=== PATIENT | female | born 1955 | race Caucasian/White ===

== ENCOUNTER 2016-12-29 06:30 | Observation (INO) | payer OTHER ==
[2016-12-29] VITALS (8 sets, daily range): BP systolic 126–184; BP diastolic 58–73
[~2016-12-29] VITALS: Ht 154.9 cm; Wt 95.3 kg
[~2016-12-29 06:30] MED LIST: CEFAZOLIN 2GM PREMIX 50 ML IV ONE
[2016-12-29] MEDS ORDERED: BACITRACIN 50,000 UNIT in IV NORMAL SALINE 250ML 250 ML IRR ONE (07:15)
[2016-12-29 08:02] LABS: HEMATOCRIT 40.7 % (36.0-47.0); HEMOGLOBIN 13.8 g/dL (12.0-15.5); RED BLOOD COUNT 4.19 x10^6/uL (3.50-5.40); RED CELL DISTRIBUTION WIDTH 15.2 % (11.5-14.5); WHITE BLOOD COUNT 8.9 x10^3/uL (4.0-11.0)
[2016-12-29] MEDS ORDERED: CEFAZOLIN 2GM PREMIX 50 ML IV ONE ×2 (08:03→11:00)
[2016-12-29] MEDS ORDERED: LIDOCAINE 2%/EPI 1:100,000 20 ML VIAL. ONE ×3 (08:04→08:38)
[2016-12-29 08:06] LABS: CALCIUM 8.8 mg/dL (8.5-10.1); CREATININE 0.6 mg/dL (0.6-1.0); GFR 101.3; POTASSIUM 3.9 mmol/L (3.5-5.1)
[2016-12-29] MEDS ORDERED: MIDAZOLAM HCL/PF 5 MG/5 ML VIAL ONE (08:18)
[2016-12-29] MEDS ORDERED: FENTANYL PF 250 MCG/5 ML VIAL. ONE (08:18)
[2016-12-29 08:25] LABS: PROTHROMBIN TIME PATIENT 12.6 SEC (11.7-14.0)
[2016-12-29] MEDS ORDERED: PHEN32.42 PO (08:41)
[2016-12-29] MEDS ORDERED: METO50TA2 PO (08:41)
[2016-12-29] MEDS ORDERED: NABU500T PO (08:41)
[2016-12-29] MEDS ORDERED: ARIP10TA13 PO (08:41)
[2016-12-29] MEDS ORDERED: LOSA50TA6 PO (08:41)
[2016-12-29] MEDS ORDERED: ASCO500T2 PO (08:41)
[2016-12-29] MEDS ORDERED: CHOL10003 PO (08:41)
[2016-12-29] MEDS ORDERED: MONT10TA9 PO (08:41)
[2016-12-29] MEDS ORDERED: ASPI-482 PO (08:41)
[2016-12-29] MEDS ORDERED: PREG300C PO (08:41)
[2016-12-29] MEDS ORDERED: RANI150T2 PO (08:41)
[2016-12-29] MEDS ORDERED: ATORVASTATIN CA80 MG PO (08:41)
[2016-12-29] MEDS ORDERED: ALBU2.5V14 NEB (08:41)
[2016-12-29] MEDS ORDERED: TRAZ50TA15 PO (08:41)
[2016-12-29] MEDS ORDERED: BACL10TA PO (08:41)
[2016-12-29] MEDS ORDERED: TOLT4CAP PO (08:41)
[2016-12-29] MEDS ORDERED: OXCA150T PO (08:41)
[2016-12-29] MEDS ORDERED: OMEP20TA63 PO (08:41)
[2016-12-29] MEDS ORDERED: CLOP75TA PO (08:41)
[2016-12-29] MEDS ORDERED: LACO100T PO (08:41)
[2016-12-29] MEDS ORDERED: LIDOCAINE 2%/EPI 1:100,000 20 ML VIAL. IJ ONE (09:00)
[2016-12-29] MEDS ORDERED: FENTANYL PF 250 MCG/5 ML VIAL. IV ONE (09:00)
[2016-12-29] MEDS ORDERED: MIDAZOLAM HCL/PF 5 MG/5 ML VIAL IV ONE (09:00)
--- NOTE | 2016-12-29 10:19 | CARD ---
APPROVED REPORT HISTORY The Patient is a 61 year-old female with a history of SSS and syncope 6.1 Mins Fluoro 92.53mGy 980.33mYmeu1 PROCEDURES Insertion Dual Chamber Pacemaker PROCEDURE: Removal of Biotronik Biomonitor loop recorder PROCEDURE DETAILS: An informed consent was obtained from patient. Patient was brought to the procedure suite and her le ft chest and shoulder were prepped and draped in the usual fashion. 20 mL of 2% lidocaine was infilt rated into the skin and subcutaneous tissues for local anesthesia at the site of the previous loop re carla. An incision was made over the loop recorder and using blunt dissection and cautery, the madina ce was easily explanted. The incision was closed in one layer. Hemostasis was secured. Patient to lerated the procedure well. There were no immediate complications. Subsequently, a Biotronik bipolar active fixation right ventricular lead model Solia S 53, [id number] was advanced under fluoroscopic guidance and the tip was positioned in the right ventricular apex. Following this, a Biotronik bipolar active fixation right atrial lead model Solia S 45 serial number [id number] was placed in the right atrial appendage under fluoroscopy guidance. The leads were secure d into place and were attached to a Biotronik dual-chamber permanent pacemaker generator model Etrins a 8 DR-T, SN [id number]. This was placed in the pocket that was subsequently closed in 3 layers. Hem ostasis was secured. At the end of procedure, the right ventricular lead showed sensing amplitude of 15.7 mV, impedance of 746ohms and a threshold of 0.4volts. The right atrial lead showed a sensing amplitude of 2.0 milliv olts, impedance of 469ohms and a threshold of 1.4 volts. Patient tolerated the procedure well. There were no immediate complications. CONCLUSION Successful explantation of a Biotronik loop recorder implanted for CVA/TIA Successful insertion of a dual chamber Biotronik pacemaker for SSS and syncope.
[2016-12-29] MEDS ORDERED: NO ANTICOAGULANT THERAPY. MC PRN (10:45)
--- NOTE | 2016-12-29 11:00 | RAD ---
Portable chest, 12/29/2016: History: Post pacemaker placement No previous chest radiographs are available at this time for comparison purposes. A left-sided transvenous pacemaker has been inserted with the tip of one lead projected over the inferior aspect of the right ventricle and the tip of the other lead projected over the superior aspect of the right atrium. The heart size and pulmonary vascularity are normal. No pulmonary infiltrates are seen. There is no evidence of pleural fluid or pneumothorax. A surgical plate and screws is evident in the lower cervical spine. IMPRESSION: 1. A left-sided transvenous pacemaker is in place. 2. No acute cardiopulmonary abnormality is detected.
[2016-12-29] MEDS: OXYCODONE/APAP 5/325 TABLET. PO PRN ×3 (11:31→22:56)
[2016-12-29] MEDS ORDERED: ALBUTEROL SULFATE 2.5 MG/3 ML NEBU. NEB PRN (20:15)
[2016-12-29] MEDS: PREGABALIN 75 MG CAPSULE PO SCH (20:36)
[2016-12-29] MEDS: METOPROLOL TART IMMED RELEASE 50 MG TABLET PO SCH (20:37)
[2016-12-29] MEDS: OXYBUTYNIN CHLORIDE 5 MG TABLET PO SCH (20:37)
[2016-12-29] MEDS: LACOSAMIDE 50 MG TABLET PO SCH (20:37)
[2016-12-29] MEDS: OXCARBAZEPINE 300 MG TABLET. PO SCH (20:38)
[2016-12-29] MEDS: BACLOFEN 10 MG TABLET PO SCH (20:38)
[2016-12-29] MEDS ORDERED: ATORVASTATIN CALCIUM 40 MG TABLET. PO SCH (21:00)
[2016-12-29] MEDS: PHENobarbital 32.4 MG TABLET. PO SCH (21:00)
[2016-12-29] MEDS ORDERED: MONTELUKAST SODIUM 10 MG TABLET. PO SCH (21:00)
[2016-12-30 02:33] VITALS: BP 134/69
[2016-12-30] MEDS: OXYCODONE/APAP 5/325 TABLET. PO PRN (05:58)
[2016-12-30 07:00] VITALS: BP 144/56
[2016-12-30] MEDS ORDERED: PANTOPRAZOLE 40 MG TABLET. PO SCH (07:30)
[2016-12-30] MEDS: BACLOFEN 10 MG TABLET PO SCH (08:38)
[2016-12-30] MEDS: LACOSAMIDE 50 MG TABLET PO SCH (08:39)
[2016-12-30 08:40] VITALS: BP 144/56
[2016-12-30] MEDS: METOPROLOL TART IMMED RELEASE 50 MG TABLET PO SCH (08:40)
[2016-12-30] MEDS: OXCARBAZEPINE 300 MG TABLET. PO SCH (08:40)
[2016-12-30] MEDS: OXYBUTYNIN CHLORIDE 5 MG TABLET PO SCH (08:40)
[2016-12-30] MEDS: PREGABALIN 75 MG CAPSULE PO SCH (08:40)
[2016-12-30] MEDS: PHENobarbital 32.4 MG TABLET. PO SCH (08:40)
[2016-12-30] MEDS ORDERED: ASPIRIN ENTERIC COATED 81 MG TABLET.DR. PO SCH (09:00)
[2016-12-30] MEDS ORDERED: ASCORBIC ACID 500 MG TABLET PO SCH (09:00)
[2016-12-30] MEDS ORDERED: ARIPIPRAZOLE 5 MG TABLET. PO SCH (09:00)
[2016-12-30] MEDS ORDERED: MELOXICAM 7.5 MG TABLET PO SCH (09:00)
[2016-12-30] MEDS ORDERED: LOSARTAN POTASSIUM 50 MG TABLET. PO SCH (09:00)
[2016-12-30] MEDS ORDERED: CHOLECALCIFEROL (VITAMIN D3) 1,000 UNIT TABLET PO SCH (09:00)
--- NOTE | 2016-12-30 09:08 | RAD ---
Indication: Pacemaker placement. Technique: Two-view chest radiograph was obtained. Comparison is from one day earlier. Findings: Dual-lead pacemaker has been placed via left subclavian approach with leads in position and no pneumothorax is apparent. Lungs are clear. Heart is not enlarged. There is no heart failure. Leads overlie the patient. Impression: No acute thoracic findings.
--- NOTE | 2016-12-30 11:22 | PDOC3 ---
RICHELLE ELIZONDO BRAND AMBASSADOR 12/30/16 1122: Discharge Summary Visit Information Date of Admission: Dec 29, 2016 Date of Discharge: Dec 30, 2016 Final Diagnosis Problems Medical Problems: (1) Bradycardia Status: Acute (2) SSS (sick sinus syndrome) Status: Acute (3) Syncope Status: Acute Brief Hospital Course Allergies Allergies Coded Allergies Type Severity Reaction Last Updated Verified erythromycin base Allergy Intermediate 12/29/16 Yes Vital Signs Vital Signs Date Time Temp Pulse Resp B/P Pulse Ox O2 Delivery O2 Flow Rate FiO2 12/30/16 08:40 71 144/56 12/30/16 08:00 Room Air 2.0 12/30/16 07:08 94 12/30/16 07:00 98.9 16 98.9 Lab Results Laboratory Tests Test 12/29/16 07:49 White Blood Count 8.9x10^3/uL (4.0-11.0) Red Blood Count 4.19x10^6/uL (3.50-5.40) Hemoglobin 13.8g/dL (12.0-15.5) Hematocrit 40.7% (36.0-47.0) Mean Corpuscular Volume 97fL (79-100) Mean Corpuscular Hemoglobin 33pg (25-35) Mean Corpuscular Hemoglobin Concent 34g/dL (31-37) Red Cell Distribution Width 15.2% (11.5-14.5) Platelet Count 182x10^3/uL (140-400) Prothrombin Time 12.6SEC (11.7-14.0) Prothromb Time International Ratio 1.0 (0.8-1.1) Sodium Level 146mmol/L (136-145) Potassium Level 3.9mmol/L (3.5-5.1) Chloride Level 109mmol/L (98-107) Carbon Dioxide Level 27mmol/L (21-32) Anion Gap 10 (6-14) Blood Urea Nitrogen 20mg/dL (7-20) Creatinine 0.6mg/dL (0.6-1.0) Estimated GFR (Cockcroft-Gault) 101.3 Glucose Level 101mg/dL (70-99) Calcium Level 8.8mg/dL (8.5-10.1) Brief Hospital Course Ms. Luis is a 61 old female, with a history of syncope with previous Biotronik Biomonitor loop recorder implant, who presented secondary to recent syncopal episode. Loop recorder interrogation demonstrated multiple episodes of significant sinus bradycardia with heart rate in the low 30's, along with several significant pauses, which coincided with syncopal episode. PPM was advised with patient agreeable. Underwent Successful explantation of a Biotronik loop recorder and insertion of a dual chamber Biotronik pacemaker for SSS and syncope. Post-op CXR with appropriate lead placement; no pneumothorax. Device interrogation with normal device function. Loop recorder home monitoring device compatible with pacemaker; will resume. Intermittent pacing on telemetry overnight. Left pectoral insertion site CDI with steri-strips intact; edges well-approximated. Mild erythema caudal to incision. Lungs CTA, bilaterally. CV RRR. Ext- no edema. Discharge with printed wound/PPM care instructions. Discharge Information Condition at Discharge: Stable Follow Up: Weeks (Sunday for in-office wound check; 3 months of PPM interrogation; [address] milligan) Disposition/Orders: D/C to Home Scheduled Aripiprazole (Abilify) 10 MG PO DAILY (Reported) Ascorbic Acid (Vitamin C) 500 MG PO DAILY (Reported) Aspirin (Aspir 81) 81 MG PO DAILY (Reported) Atorvastatin Calcium (Atorvastatin Calcium) 80 MG PO HS (Reported) Baclofen (Baclofen) 10 MG PO TID (Reported) Cholecalciferol (Vitamin D3) (Vitamin D3) 1,000 UNIT PO DAILY (Reported) Clopidogrel Bisulfate (Clopidogrel) 75 MG PO DAILY (Reported) Lacosamide (Vimpat) 100 MG PO BID (Reported) Losartan Potassium (Losartan Potassium) 50 MG PO DAILY (Reported) Metoprolol Tartrate (Metoprolol Tartrate) 50 MG PO BID (Reported) Montelukast Sodium (Montelukast Sodium Tablet) 10 MG PO HS (Reported) Nabumetone (Nabumetone) 1,000 MG PO DAILY (Reported) Omeprazole Magnesium (Prilosec Otc) 40 MG PO DAILY (Reported) Oxcarbazepine (Oxcarbazepine) 150 MG PO BID (Reported) Phenobarbital (Phenobarbital) 32.4 MG PO BID (Reported) Pregabalin (Lyrica) 300 MG PO BID (Reported) Tolterodine Tartrate (Detrol La) 4 MG PO DAILY (Reported) Scheduled PRN Albuterol Sulfate (Albuterol Sulfate Conc Neb Soln) 1 VIAL NEB Q4HRS PRN PRN SHORTNESS OF BREATH (Reported) Patient Instructions Patient Instructions Must know & what to expect after device implant: 1. Your surgical dressing should be removed prior to discharge from the hospital, but allow the steri- strips to fall off naturally. 2. Activity restrictions: DO NOT raise arm above shoulder level, lift anything heavier than a gallon of milk, and no push or pull motions such as vacuuming/lawn mowing, no swinging motions (golf), etc for 4 weeks. 3. It is OK to use a cell phone or other electronic devices just be sure you do not store it in a breast pocket on the side where the device was placed. 4. Device will be interrogated prior to your discharge from the hospital and then every 3 months for defibrillators and every 6 months for pacemakers. You may be asked to have your device checked remotely from home as well, but this will depend on your particular physicians preference. 5. You may remove the arm immobilizer the day after device placement. Wear the arm immobilizer/splint at night (during sleep times) for 2 week to prevent unintended arm movement that can cause lead dislodgement. 6. Do not drive for one week as the task of driving may lead to unintended arm motion that may cause lead dislodgement. The seatbelt will also rub against the incision site & cause irritation. 7. It is our recommendation that you utilize Tylenol at home for pain control. You need to call our office if you are having uncontrollable pain at the incision site. 8. Keep your incision clean and dry. It is OK to shower. DO NOT submerge in bath, pool, or hot tub, until cleared by your doctor, as this could lead to increase risk of infection.. It is OK to use regular soap just do not scrub the incision site. Water spray from shower should not directly hit the incision. Be sure to blot dry not rub. 9. Inspect your incision daily. If you notice any increased redness, swelling , or drainage, or if you start running a fever, call the office immediately. The number is [phone]. 10. For women, if you need to protect against irritation from the bra straps, you can place a piece of gauze over the incision site for cushion. Please be sure to tape it loosely to allow air to the site & remove the gauze when you remove the bra. 11. Be sure to carry your device identification information card in your wallet/purse at all times. 12. It is OK to go through security at the airport with your device, but be sure to let the TSA know prior to proceeding as the security settings change depending on varying factors. Please do whatever is requested by security at that time. 13. Some of the newer devices may be MRI compatible but, currently, the use of these devices is not widespread, so you likely will not be able to have an MRI. Please clarify this with your physician. Call the office at [phone] for any questions or concerns. CODY REDMOND MD 12/30/16 4047: Discharge Summary Brief Hospital Course Brief Hospital Course Pt. seen and examined. Agree with above LEVER TENDER note. No acute events overnight. Device check and CXR wnl. She has some mild edema at the pocket with mild ecchymosis (Large fat pad and had some mild coagulopathy, likely due to plavix) Will have more expedited wound check Supportive care. Discharge Information Scheduled Aripiprazole (Abilify) 10 MG PO DAILY (Reported) Ascorbic Acid (Vitamin C) 500 MG PO DAILY (Reported) Aspirin (Aspir 81) 81 MG PO DAILY (Reported) Atorvastatin Calcium (Atorvastatin Calcium) 80 MG PO HS (Reported) Baclofen (Baclofen) 10 MG PO TID (Reported) Cholecalciferol (Vitamin D3) (Vitamin D3) 1,000 UNIT PO DAILY (Reported) Clopidogrel Bisulfate (Clopidogrel) 75 MG PO DAILY (Reported) Lacosamide (Vimpat) 100 MG PO BID (Reported) Losartan Potassium (Losartan Potassium) 50 MG PO DAILY (Reported) Metoprolol Tartrate (Metoprolol Tartrate) 50 MG PO BID (Reported) Montelukast Sodium (Montelukast Sodium Tablet) 10 MG PO HS (Reported) Nabumetone (Nabumetone) 1,000 MG PO DAILY (Reported) Omeprazole Magnesium (Prilosec Otc) 40 MG PO DAILY (Reported) Oxcarbazepine (Oxcarbazepine) 150 MG PO BID (Reported) Phenobarbital (Phenobarbital) 32.4 MG PO BID (Reported) Pregabalin (Lyrica) 300 MG PO BID (Reported) Tolterodine Tartrate (Detrol La) 4 MG PO DAILY (Reported) Scheduled PRN Albuterol Sulfate (Albuterol Sulfate Conc Neb Soln) 1 VIAL NEB Q4HRS PRN PRN SHORTNESS OF BREATH (Reported) RICHELLE ELIZONDO APRN Dec 30, 2016 11:22 CODY REDMOND MD Dec 30, 2016 12:05
--- NOTE | 2017-01-03 18:42 | PDOC1 ---
History and Physical Visit Information Date of Admission: Dec 29, 2016 at 10:56 Source: Patient History of Present Illness History of Present Illness Patient is a 61-year-old woman who was admitted to the hospital after a pacemaker implantation for sick sinus syndrome and near syncope with significant pauses. Cardiac Risk Factors Cardiac Risk Factors: Hypertension, Overweight/Obese/Met Synd, Hyperlipidemia Past Medical History Cardiovascular: HTN, Syncope CENTRAL NERVOUS SYSTEM: CVA Current Medications Current Medications Please see home medication list in chart Allergies Allergies Allergies Coded Allergies Type Severity Reaction Last Updated Verified erythromycin base Allergy Intermediate 12/29/16 Yes Social History Smoke: No ALCOHOL: none Drugs: None Lives: with Family Family History Comments Noncontributory ROS Review of System Negative for 10 out of 14 systems reviewed unless otherwise mentioned above in history of present illness. Physical Exam General: Alert, Oriented X3 HEENT: Atraumatic Lungs: Clear to auscultation Heart: Regular rate, Normal S1, Normal S2 CHEST: Clear to auscultation Abdomen: Normal bowel sounds Extremities: No clubbing Skin: No rashes Neuro: Normal gait Labs Labs Normal creatinine and hemoglobin. ECG EKG: NSR VTE Prophylaxis Ordered VTE Prophylaxis Devices: No VTE Pharmacological Prophylaxi: No Assessment/Plan Assessment/Plan Assessment: 1. Sick sinus syndrome with near syncope Plan: 1. Dual-chamber pacemaker implantation after discussion of the risks and benefits. CODY REDMOND MD Jan 03, 2017 18:42
== END 2016-12-30 12:15 | disposition home or self-care (01) ==
LOC: CCL 06:30 → CVICU 10:56
PROVIDERS: ADMIT Internal Medicine Cardiovascular Disease; ATTEND Internal Medicine Cardiovascular Disease
DX: I49.5 Sick sinus syndrome (principal); R55 Syncope and collapse; R00.1 Bradycardia, unspecified
CPT/HCPCS: 33208; 33284; 36415; 71010; 71020; 80048; 85027; 85610; 96365; C1785; C1892; C1898; G0378; G0379; J0690; J2250; J3010; J3490; J7050; J7030

== ENCOUNTER → 2018-02-11 | Outpatient (CLI) | payer OTHER | END | disposition home or self-care (01) | LOC: SLPLAB 06:57 | DX: R56.9 Unspecified convulsions (principal) | CPT/HCPCS: 95951 ==